=== PATIENT | male | born 1990 | race Two or more races ===

== ENCOUNTER 2021-08-21 21:41 | Emergency (ER) | payer SELFPAY ==
[2021-08-21 22:53] LABS: CORONAVIRUS COVID-19 NAA NEGATIVE (NEGATIVE)
--- NOTE | 2021-08-21 23:30 | EDM.PDOC ---
ED HPI GENERAL MEDICAL PROBLEM - General Chief Complaint: General Stated Complaint: SOB Time Seen by Provider: 08/21/21 21:57 - History of Present Illness INITIAL COMMENTS - FREE TEXT/NARRATIVE: [id number] male presenting to the ED for evaluation of fever, chills, headache, body aches, sore throat, cough, chest congestion, chest heaviness, nausea without vomiting, and muscle aches that started yesterday. Patient is unaware of being exposed anyone with COVID-19. He is currently unvaccinated for Covid. He has felt feverish but has not been able to check his temperature. Questioning of the patient occurred using a audio interpreter and translator line for [place]ian as this patient does not speak Lao. Generalized Pain Score (Numeric/FACES): 6 - Related Data Allergies Allergy/AdvReac Type Severity Reaction Status Date / Time No Known Allergies Allergy Verified 08/21/21 22:13 Home Meds: Home Meds NK [No Known Home Meds] 08/21/21 [History] Past Medical History - Past Health History Medical/Surgical History: Denies Medical/Surgical History Social & Family History - Tobacco Use Tobacco Use Status *Q: Current Every Day Tobacco User Years of Tobacco use: 14 Packs/Tins Daily: 0.5 - Caffeine Use Caffeine Use: Reports: None - Recreational Drug Use Recreational Drug Use: No ED ROS GENERAL - Review of Systems Review Of Systems: See Below Constitutional: Reports: Fever, Chills, Malaise, Decreased Appetite HEENT: Reports: Rhinitis, Throat Pain Respiratory: Reports: Shortness of Breath, Cough Cardiovascular: Reports: Chest Pain (Chest heaviness) Endocrine: Reports: Fatigue GI/Abdominal: Reports: Nausea. Denies: Abdominal Pain, Constipation, Diarrhea, Vomiting : Reports: No Symptoms Musculoskeletal: Reports: Hand Pain Skin: Reports: No Symptoms Neurological: Reports: Headache Psychiatric: Reports: No Symptoms Hematologic/Lymphatic: Reports: No Symptoms ED EXAM, GENERAL - Physical Exam Exam: See Below Exam Limited By: No Limitations General Appearance: Alert, Anxious, Mild Distress Eye Exam: Bilateral Eye: EOMI, PERRL Nose: Nasal Swelling, Nasal Drainage, Clear Rhinorrhea Throat/Mouth: Normal Inspection, Normal Oropharynx, Normal Voice, No Airway Compromise Head: Atraumatic, Normocephalic Neck: Normal Inspection, Supple, Non-Tender, Full Range of Motion. No: Lymphadenopathy (R), Lymphadenopathy (L) Respiratory/Chest: No Respiratory Distress, Lungs Clear, Normal Breath Sounds. No: Crackles, Rales, Rhonchi, Wheezing Cardiovascular: Normal Peripheral Pulses, Regular Rate, Rhythm, No Murmur Peripheral Pulses: 2+: Radial (L), Radial (R) GI/Abdominal: Normal Bowel Sounds, Soft, Non-Tender Extremities: Normal Inspection Neurological: Alert, Oriented, Normal Cognition, No Motor/Sensory Deficits Psychiatric: Normal Affect, Normal Mood Skin Exam: Warm, Dry, Intact, Normal Color, No Rash Course - Vital Signs Last Recorded V/S: Last Vital Signs Temp 37.3 C 08/21/21 22:05 Pulse 85 08/21/21 22:05 Resp 16 08/21/21 22:05 BP 127/72 08/21/21 22:05 Pulse Ox 96 08/21/21 22:05 - Orders/Labs/Meds Orders: Active Orders 24 hr Category Date Time Status Chest 2V [CR] Stat Exams 08/21/21 23:14 Ordered D-DIMER QUANTITATIVE [COAG] Stat Lab 08/21/21 22:25 Received PROCALCITONIN [CHEM] Stat Lab 08/21/21 22:25 Received Isolation [COMM] Stat Oth 08/21/21 21:58 Ordered Labs: Laboratory Tests 08/21/21 08/21/21 08/21/21 Range/Units 22:13 22:25 22:25 WBC 15.9 H (4.5-11.0) K/uL RBC 4.91 (4.30-5.90) M/uL Hgb 15.4 H (12.0-15.0) g/dL Hct 43.4 (40.0-54.0) % MCV 88 (80-98) fL MCH 31 (27-31) pg MCHC 36 (32-36) % Plt Count 201 (150-400) K/uL Neut % (Auto) 83.3 H (36-66) % Lymph % (Auto) 10.8 L (24-44) % [place] % (Auto) 4.5 (2-6) % Eos % (Auto) 1.3 L (2-4) % Baso % (Auto) 0.1 (0-1) % Sodium 135 L (140-148) mmol/L Potassium 3.7 (3.6-5.2) mmol/L Chloride 99 L (100-108) mmol/L Carbon Dioxide 24 (21-32) mmol/L Anion Gap 15.7 H (5.0-14.0) mmol/L BUN 12 (7-18) mg/dL Creatinine 0.9 (0.8-1.3) mg/dL Est Cr Clr Drug Dosing 103.45 mL/min Estimated GFR (MDRD) > 60 (>60) Glucose 93 (74-106) mg/dL Lactic Acid (0.4-2.0) mmol/L Calcium 8.8 (8.5-10.1) mg/dL Ferritin 127 (8-388) ng/ml Total Bilirubin 1.0 (0.2-1.0) mg/dL AST 20 (15-37) U/L ALT 39 (12-78) U/L Alkaline Phosphatase 86 (46-116) U/L Lactate Dehydrogenase 206 (85-227) U/L C-Reactive Protein 2.42 H (0.0-0.3) mg/dL Total Protein 7.3 (6.4-8.2) g/dL Albumin 4.1 (3.4-5.0) g/dL Globulin 3.2 (2.3-3.5) g/dL Albumin/Globulin Ratio 1.3 (1.2-2.2) Influenza Type A RNA Negative (NEGATIVE) RSV RNA (INAAT) Negative (NEGATIVE) Influenza Type B RNA Negative (NEGATIVE) SARS-CoV-2 RNA (BRITTANY) Negative (NEGATIVE) 08/21/21 Range/Units 22:25 WBC (4.5-11.0) K/uL RBC (4.30-5.90) M/uL Hgb (12.0-15.0) g/dL Hct (40.0-54.0) % MCV (80-98) fL MCH (27-31) pg MCHC (32-36) % Plt Count (150-400) K/uL Neut % (Auto) (36-66) % Lymph % (Auto) (24-44) % [place] % (Auto) (2-6) % Eos % (Auto) (2-4) % Baso % (Auto) (0-1) % Sodium (140-148) mmol/L Potassium (3.6-5.2) mmol/L Chloride (100-108) mmol/L Carbon Dioxide (21-32) mmol/L Anion Gap (5.0-14.0) mmol/L BUN (7-18) mg/dL Creatinine (0.8-1.3) mg/dL Est Cr Clr Drug Dosing mL/min Estimated GFR (MDRD) (>60) Glucose (74-106) mg/dL Lactic Acid 0.5 (0.4-2.0) mmol/L Calcium (8.5-10.1) mg/dL Ferritin (8-388) ng/ml Total Bilirubin (0.2-1.0) mg/dL AST (15-37) U/L ALT (12-78) U/L Alkaline Phosphatase (46-116) U/L Lactate Dehydrogenase (85-227) U/L C-Reactive Protein (0.0-0.3) mg/dL Total Protein (6.4-8.2) g/dL Albumin (3.4-5.0) g/dL Globulin (2.3-3.5) g/dL Albumin/Globulin Ratio (1.2-2.2) Influenza Type A RNA (NEGATIVE) RSV RNA (INAAT) (NEGATIVE) Influenza Type B RNA (NEGATIVE) SARS-CoV-2 RNA (BRITTANY) (NEGATIVE) - Re-Assessments/Exams Free Text/Narrative Re-Assessment/Exam: 08/21/21 23:26 I reviewed the patient's labs with a CBC showing a leukocyte count of 15.9 with 83% neutrophils, hemoglobin of 15.4, hematocrit of 43.4, and platelet count of 210,000. The comprehensive metabolic panel shows a sodium 135, potassium 3.7, chloride of 99, carbon of 24, BUN of 12 with a creatinine of 0.9 and glucose of 93. The calcium is 8.8, bilirubin is 1.0, AST is 20, ALT is 39, alkaline phosphatase is 86. The venous lactic acid is 0.5, ferritin is 127, LDH is 206 and C-reactive protein is mildly elevated at 2.42. The patient underwent a quadrivalent testing which was negative for RSV, COVID-19, and influenza. Given the leukocytosis, he underwent a chest x-ray demonstrating infiltrates but some hilar adenopathy consistent with acute bronchitis. We will put him on azithromycin 2 tablets today and 1 tablet a day for the next 4 days. This should help reduce inflammation in the airways as well as treat the infection. Indications return to the ED were discussed in [place]ian with the patient and he was discharged in satisfactory condition. Departure - Departure Time of Disposition: 23:34 Disposition: Home, Self-Care 01 Clinical Impression: Acute bacterial bronchitis - Discharge Information Referrals: PCP,None [Primary Care Provider] - Forms: ED Department Discharge Care Plan Goals: Eduardo examen de hoy demuestra que tiene chris infeccin en las vas respiratorias de abhi pulmones llamada bronquitis. Comenzaremos con un antibitico llamado azitromicina para tratar esto. [place] 2 tabletas hoy seguido de 1 tableta diaria lm los prximos 4 price. Foreman debera ayudar con la infeccin y la congestin que est experimentando. Sepsis Event Note (ED) - Focused Exam Vital Signs: Vital Signs Temp Pulse Resp BP Pulse Ox 08/21/21 22:05 37.3 C 85 16 127/72 96 - Problem List & Annotations (1) Acute bacterial bronchitis SNOMED Code(s): 517720118 Code(s): J20.8 - ACUTE BRONCHITIS DUE TO OTHER SPECIFIED ORGANISMS; B96.89 - OTH BACTERIAL AGENTS THE CAUSE OF DISEASES CLASSD [id number] Status: Acute Priority: Medium Current Visit: Yes - Problem List Review Problem List Initiated/Reviewed/Updated: Yes - My Orders Last 24 Hours: My Active Orders 08/21/21 21:58 Isolation [COMM] Stat 08/21/21 22:25 D-DIMER QUANTITATIVE [COAG] Stat PROCALCITONIN [CHEM] Stat 08/21/21 23:14 Chest 2V [CR] Stat - Assessment/Plan Last 24 Hours: My Active Orders 08/21/21 21:58 Isolation [COMM] Stat 08/21/21 22:25 D-DIMER QUANTITATIVE [COAG] Stat PROCALCITONIN [CHEM] Stat 08/21/21 23:14 Chest 2V [CR] Stat
--- NOTE | 2021-08-22 09:20 | CR ---
CHEST: 2 view CLINICAL HISTORY:Fever, cough, dyspnea COMPARISON:None FINDINGS: Heart size and pulmonary artery are normal. There is mild generalized interstitial prominence. Some of this may be chronic. There are no effusions Impression: Mild generalized prominence lung markings may represent an early pneumonitis
== END 2021-08-22 00:25 | disposition home or self-care (01) ==
LOC: JP.ED 21:41
DX: J20.8 Acute bronchitis due to other specified organisms (principal); B96.89 Other specified bacterial agents as the cause of diseases classified elsewhere; Z20.822 Contact with and (suspected) exposure to COVID-19
CPT/HCPCS: 0241U; 36415; 71046; 80053; 82728; 83605; 83615; 84145; 85025; 85379; 86140; 99284